=== PATIENT | female | born 1970 | race Caucasian/White ===

== ENCOUNTER → 2024-10-13 | Outpatient (CLI) | payer BC, SELFPAY ==
--- NOTE | 2024-10-13 16:10 | XR_ITS ---
Examination: Lumbar spine 3 views TECHNIQUE: AP lateral, lateral lower lumbar spine 3 views Date and time: October 13, 2024 1658 hours INDICATIONS: Bilateral lower back pain 2 months FINDINGS: Adequate alignment lumbar vertebral bodies. No lumbar fracture. Advanced degenerative disc disease L5-S1. 5 mm calcification to the right of L4, clinical correlation advised, consider renal sonography follow-up IMPRESSION: Advanced degenerative disc disease L5-S1
== END | disposition home or self-care (01) ==
PROVIDERS: PCP Nurse Practitioner Family; Referring Provider Nurse Practitioner Family; Visit Provider Nurse Practitioner Family
DX: M51.379 Other intervertebral disc degeneration, lumbosacral region without mention of lumbar back pain or lower extremity pain (principal)
CPT/HCPCS: 72100